=== PATIENT | female | born 1985 | race Caucasian/White ===

== ENCOUNTER 2024-06-05 20:23 | Emergency (ER) | payer BC, SELFPAY ==
--- NOTE | ~2024-06-05 | XR_ITS ---
XR chest 2V Ordering provider: Zain Luke MD History: 38 years Female with . 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 Comparison: None. FINDINGS: MEDIASTINUM: The cardiac silhouette is not enlarged. Right Port-A-Cath with the tip overlying superior vena cava. Postoperative changes in the mediastinum . LUNGS: No infiltrates, effusions or pneumothorax. OTHER: No free air under the diaphragm. IMPRESSION: No acute cardiopulmonary pathology. Reviewed, dictated and finalized at location A.
--- NOTE | 2024-06-05 20:27 | ECG_ITS ---
Test Date: 2024-06-05 20:54:19 Measurements Intervals [place] Rate: 93 P: 63 WV: 134 QRS: 71 QRSD: 83 T: 63 QT: 363 QTc: 453 Interpretive Statements SINUS RHYTHM NORMAL ECG No previous ECG available for comparison Electronically Signed On 06-05-2024 21:22:08 CDT by Camron Vidales D.O.
[2024-06-05 20:33] VITALS: BP 141/75; PULSE 95; RESP 18; TEMP 36.7; O2SAT 99
[2024-06-05 20:34] LABS: Glucose Point of Care 165 mg/dl (65-105)
[2024-06-05 21:30] LABS: Basophils Absolute Auto 0.03 K/mm3 (0.00-0.10); Basophils Percent Auto 0.6 % (0.0-1.0); Eosinophils Absolute Auto 0.05 K/mm3 (0.02-0.50); Eosinophils Percent Auto 1.1 % (1.0-6.0); Hematocrit 30.1 % (35.0-49.0); Hemoglobin 10.1 g/dL (12.0-15.0); Immature Granulocyte Absolute 0.02 K/mm3 (0.00-0.00); Immature Granulocyte Percent A 0.4 % (0.0-0.0); Lymphocytes Percent Auto 2.1 % (18.0-42.0); Mean Corpuscular HGB Conc 33.6 g/dL (32-36); Mean Corpuscular Hemoglobin 30.1 pg (27.0-31.0); Mean Corpuscular Volume 89.6 fL (78.0-102.0); Mean Platelet Volume 10.2 fl (9.2-11.8); Monocytes Absolute Auto 0.16 K/mm3 (0.10-0.90); Monocytes Percent Auto 3.4 % (2.0-11.0); Neutrophils Absolute Auto 4.37 K/mm3 (1.70-7.20); Neutrophils Percent Auto 92.4 % (50.0-70.0); Platelet Count Result 152 K/mm3 (150-420); Red Blood Count 3.36 M/mm3 (4.20-5.40); Red Cell Distribution Width 12.9 % (11.6-14.4); White Blood Count 4.7 K/mm3 (4.8-10.8)
--- NOTE | 2024-06-05 21:33 | ED.URI ---
HPI - URI/Sore Throat General Chief Complaint: Upper Respiratory Infection Stated Complaint: sore throat Time Seen by Provider: 06/05/24 20:26 Source: patient Mode of arrival: ambulatory Limitations: no limitations History of Present Illness HPI Narrative: Patient is a 38-year-old female with cystic fibrosis and having some allergic reaction after cleaning today at a house with dogs and other allergens. She feels like her throat is tight. Also her right lower extremity is causing pain 3 hours now. MD elicited complaint: sore throat Pertinent past history: other ( Cystic fibrosis) Onset (ago): day(s) (1) Consistency: constant Severity: mild Pain scale (0-10): 3 Able to tolerate fluids by mouth: Yes Exacerbating factors: other ( patient was cleaning a house today and noted the throat changes; also some skin changes) Relieving factors: nothing Associated symptoms: denies other symptoms Treatments prior to arrival: none Related Data Home Medications Medication Instructions Recorded Confirmed Unable to Obtain Home Medications 06/05/24 06/05/24 Allergies Allergy/AdvReac Type Severity Reaction Status Date / Time morphine Allergy Severe Other Verified 06/05/24 20:50 Review of Systems Review of Systems: All systems reviewed & are unremarkable except as noted in HPI and below Constitutional: Constitutional: Reports no additional constitutional complaints Eyes: Eyes: Reports no additional eye complaints ENT: Reports system reviewed and no additional complaints, except as documented Cardiovascular: Cardiovascular: Reports no additional cardiovascular complaints Respiratory: Respiratory: Reports no additional respiratory complaints Gastrointestinal: Gastrointestinal: Reports no additional gastrointestinal complaints Genitourinary: Genitourinary: Reports no additional female genitourinary complaints Musculoskeletal: Musculoskeletal: Reports no additional musculoskeletal complaints Integumentary/Breasts: Skin/Breast: Reports system reviewed and no additional complaints, except as docu Neurologic: Reports system reviewed and no additional complaints, except as documented Psychiatric: Psychiatric: Reports no additional psychiatric complaints Endocrine: Endocrine: Reports no additional endocrine complaints Hematologic/Lymphatic: Hematologic/Lymphatic: Reports no additional hematologic/lymphatic complaints Allergic/Immunologic: Allergic/Immunologic: Reports no additional allergic/immunologic complaints Exam Const: General: healthy appearing Nutritional Appearance: well nourished Orientation/consciousness: patient oriented x3 HENMT: Head: normal to inspection Ears: external ears normal Face/Nose/Sinus: Normal external nose present Eyes: Conjunctivae: conjunctivae normal Pupils: Equal, round and reactive pupils present EOM: EOMs intact bilaterally Neck: Neck: normal visual inspection Chest: Chest palpation & inspection: normal inspection of the chest Resp: Effort & Inspection: normal respiratory effort and not labored Auscultation: clear to auscultation bilaterally Cardio: Rate: regular rate Rhythm: regular rhythm Heart sounds: no murmurs GI: Inspection: non-distended GI Palp: Yes Soft to palpation and No Tenderness to palpation present (GI) Auscultation: normal bowel sounds : General: Yes bladder normal to palpation Back/Spine/Pelvis: Back: no CVA tenderness Skin: General skin exam: normal color Rashes: no rashes Wounds: no wounds Other: some slight bilateral hand irritation of the skin Neuro: General: patient oriented x3 Cranial nerves: Yes Nystagmus not present Speech: normal speech Extrem: General: normal to inspection Psych: Mental Status: mental status grossly normal Affect: normal affect Attitude: cooperative Course Vital Signs Vital signs: Vital Signs Oxygen Delivery Room Air 06/05/24 20:23 Temperature 36.7 C 06/05/24 20:33 Pulse Rate 95 07/
[2024-06-05 21:42] LABS: Alanine Aminotransferase 50 U/L (14-59); Alkaline Phosphatase 71 U/L (46-116); Anion Gap 9 mmol/L (4-12); Aspartate Amino Transferase 46 U/L (15-37); Bilirubin,Total 0.3 mg/dL (0.00-1.00); Blood Urea Nitrogen 19 mg/dL (7-18); Calcium 8.3 mg/dL (8.5-10.1); Carbon Dioxide 24 mmol/L (21-32); Chloride 107 mmol/L (98-108); Estimated CRCL calculation 31 ml/min; Estimated Glomerular Filt Rate 29; Glucose 121 mg/dL (70-99); Lactic Acid Reflex 1.5 mmol/L (0.4-2.0); Osmolality Calculated 293 mOsm/kg (285-295); Potassium 4.2 mmol/L (3.5-5.1); Sodium 140 mmol/L (136-145); Total Protein 5.9 g/dL (6.4-8.2)
[2024-06-05 21:43] LABS: Troponin I < 4.0 ng/L (0.00-60.4)
[2024-06-05 21:55] LABS: D Dimer 0.27 mg/L (0.19-0.50)
[2024-06-05 22:09] LABS: Influenza A QL RT-PCR Negative (Negative); Influenza B QL RT-PCR Negative (Negative); RSV RNA, RT-PCR Negative (Negative); SARS-CoV-2 RNA PCR Negative (Negative)
[2024-06-05] MEDS: methylPREDNISolone SOD SUCC 125 MG VIAL IM (22:09)
[2024-06-05 22:26] LABS: Appearance Urine Clear (Clear); Bilirubin Urine Negative (Negative); Blood Urine Trace-intact (Negative); Color Urine Yellow (Yellow); Glucose Urine UA 3+ (Negative); Ketones Urine Negative (Negative); Leukocyte Esterase Ur Negative LEU/UL (Negative); Nitrate Urine Negative (Negative); Protein Urine Negative (Negative); Specific Grav Ur >= 1.030 (1.010-1.020); Urobilinogen Urine 0.2 mg/dL (0.2-1.0)
[2024-06-05 22:32] LABS: Add Urine Microscopic? YES; Hyaline Casts Urine 20-29 /lpf; Pregnancy On Board Control Positive; RBC Urine 0-2 /hpf (0-2); Urine Pregnancy Test Negative
[2024-06-05] MEDS: HYDROmorphone HCL INJ (*CRX) 2 MG/ML VIAL 0.5 MG IV PUSH (23:58)
[2024-06-06] MEDS: SODIUM CHLORIDE 0.9% IV 1,000 ML 999 ML IV CONT (00:02)
[2024-06-06] MEDS: ONDANSETRON INJ 4 MG/2 ML VIAL IV PUSH (01:08)
[2024-06-06] MEDS: HEPARIN SODIUM LOCK FLUSH 500 UNITS/5 ML SYRINGE (01:31)
== END 2024-06-06 01:32 | disposition home or self-care (01) ==
PROVIDERS: Emergency Provider Emergency Medicine
DX: E86.0 Dehydration (principal); N17.9 Acute kidney failure, unspecified; E84.9 Cystic fibrosis, unspecified; Z20.822 Contact with and (suspected) exposure to COVID-19
CPT/HCPCS: 36415; 71046; 80053; 81001; 81025; 82948; 83605; 84484; 85025; 85380; 87637; 93005; 96361; 96372; 96374; 99284; J1170; J2405; J2919; J7030

== ENCOUNTER 2024-10-27 09:30 | Emergency (ER) | payer BC, SELFPAY ==
[2024-10-27] VITALS (29 sets, daily range): BP systolic 116–155; BP diastolic 67–95; PULSE 57–82; RESP 20–22; TEMP 36.7; O2SAT 95–100
--- NOTE | ~2024-10-27 | CT_ITS ---
CT of the Abdomen and Pelvis: Indication: Abdominal pain Technique: 2.5 mm axial scans were obtained through the abdomen and pelvis following intravenous adm inistration of 100 cc of Omnipaque 350. Dose reduction technique was used on this scan by utilizing a utomated exposure control and iterative reconstruction technique. The dose-length product (DLP) was 4 12.58 mGy-cm. Findings: Scans through the lung bases are unremarkable. There is diffuse hepatic steatosis. Cholecystectomy clips are present. There is marked atrophy/fatty replacement of the pancreas. The adrenals and kidneys are within normal limits. There is borderline s plenomegaly. No evidence of aortic aneurysm. No lymphadenopathy. No bowel obstruction or bowel wall thickening. Large amount of stool present throughout large bowel. There is also prominent stool distending the terminal ileum. Findings are compatible with constipatio n, possibly severe... Images through the pelvis were performed. Urinary bladder unremarkable. 4.2 cm right ovarian cyst pre sent. No ascites. Impression: Marked stool throughout the large bowel and distending the terminal ileum. Findings suggest severe co nstipation. 4.2 cm right ovarian cyst. Diffuse fatty infiltration of the liver. Borderline slightly. Reviewed, dictated and finalized at location . ARY HELPER Impression: Marked stool throughout the large bowel and distending the terminal ileum. Find ings suggest severe constipation. 4.2 cm right ovarian cyst. Diffuse fatty infiltration of the liver. Borderline slightly.
--- NOTE | ~2024-10-27 | XR_ITS ---
XR chest 1V portable 10/27/2024 10:09 Indication: RSV. Cough. Double lung transplant placement. Procedure: AP portable chest Comparison: 06/05/2024 Findings: Bilateral central venous catheter tips in the SVC. Heart size normal. There are changes of inferior sternotomy. There are infiltrates of the right midlung which may represent atelectasis or de veloping pneumonia. Impression: 1: Subtle new infiltrates of the right mid lung, atelectasis versus pneumonia. Reviewed, dictated and finalized at location B. TH INFORMATION MANAGEMENT DIRECTOR Impression: 1: Subtle new infiltrates of the right mid lung, atelectasis versus pneumonia.
--- NOTE | 2024-10-27 09:40 | ECG_ITS ---
Test Date: 2024-10-27 09:56:19 Measurements Intervals [place] Rate: 79 P: 75 MT: 98 QRS: 79 QRSD: 77 T: 73 QT: 369 QTc: 423 Interpretive Statements SINUS RHYTHM Compared to ECG 06/05/2024 20:54:19 NO SIGNIFICANT CHANGES Electronically Signed On 10-28-2024 11:48:06 PAYROLL PROCESSOR by Sharmin Garza M.D.
--- NOTE | 2024-10-27 09:49 | PC.NURSE ---
Covid test administered & given to Praveen to take to lab
[2024-10-27 09:53] LABS: Basophils Absolute Auto 0.01 K/mm3 (0.00-0.10); Basophils Percent Auto 0.1 % (0.0-1.0); Hematocrit 32.7 % (35.0-49.0); Hemoglobin 11.1 g/dL (12.0-15.0); Immature Granulocyte Absolute 0.08 K/mm3 (0.00-0.00); Immature Granulocyte Percent A 0.6 % (0.0-0.0); Lymphocytes Absolute Auto 0.24 K/mm3 (1.10-4.50); Lymphocytes Percent Auto 1.8 % (18.0-42.0); Mean Corpuscular HGB Conc 33.9 g/dL (32-36); Mean Corpuscular Hemoglobin 30.7 pg (27.0-31.0); Mean Corpuscular Volume 90.3 fL (78.0-102.0); Monocytes Absolute Auto 0.48 K/mm3 (0.10-0.90); Monocytes Percent Auto 3.6 % (2.0-11.0); Neutrophils Absolute Auto 12.36 K/mm3 (1.70-7.20); Neutrophils Percent Auto 93.9 % (50.0-70.0); Platelet Count Result 170 K/mm3 (150-420); Red Blood Count 3.62 M/mm3 (4.20-5.40); Red Cell Distribution Width 13.2 % (11.6-14.4); White Blood Count 13.2 K/mm3 (4.8-10.8)
[2024-10-27] MEDS: KETOROLAC 30 MG/ML VIAL (*BKC) IV PUSH (09:54)
[2024-10-27] MEDS: ONDANSETRON INJ 4 MG/2 ML VIAL IV PUSH ×2 (09:58→13:18)
[2024-10-27] MEDS: PANTOPRAZOLE SODIUM IV 40 MG VIAL IV PUSH (10:01)
[2024-10-27] MEDS: SODIUM CHLORIDE 0.9% IV 1,000 ML 999 ML IV CONT (10:02)
[2024-10-27 10:08] LABS: Partial Thromboplastin Time 24.5 Sec (23.9-30.70); Prothrombin Time 11.4 Seconds (9.50-12.1)
[2024-10-27 10:09] LABS: Alanine Aminotransferase 15 U/L (14-59); Albumin Level 2.8 g/dL (3.4-5.0); Alkaline Phosphatase 68 U/L (46-116); Anion Gap 10 mmol/L (4-12); Aspartate Amino Transferase 11 U/L (15-37); Bilirubin,Total 0.3 mg/dL (0.00-1.00); Blood Urea Nitrogen 19 mg/dL (7-18); Calcium 8.4 mg/dL (8.5-10.1); Carbon Dioxide 26 mmol/L (21-32); Chloride 103 mmol/L (98-108); Estimated CRCL calculation 45 ml/min; Estimated Glomerular Filt Rate 46; Glucose 155 mg/dL (70-99); Lipase 7 U/L (16-77); Osmolality Calculated 293 mOsm/kg (285-295); Potassium 4.4 mmol/L (3.5-5.1); Sodium 139 mmol/L (136-145); Total Protein 5.8 g/dL (6.4-8.2)
[2024-10-27 10:14] LABS: Lactic Acid Reflex 2.1 mmol/L (0.4-2.0)
[2024-10-27 10:35] LABS: SARS-CoV-2 RNA PCR Negative (Negative)
[2024-10-27 10:36] LABS: Influenza A QL RT-PCR Negative (Negative); Influenza B QL RT-PCR Negative (Negative); RSV RNA, RT-PCR Positive (Negative)
[2024-10-27 11:13] LABS: SPREG INTERNAL CONTROL Positive; Serum Qual hCG Negative
[2024-10-27 12:51] LABS: Reflex Lactic Acid Yes or No Add Lactic
--- NOTE | 2024-10-27 12:58 | ED_ITS ---
HPI - Nausea/Vomiting/Diarrhea General Chief complaint: Nausea/Vomiting/Diarrhea Stated complaint: nausea and vomiting Source: patient and family Mode of arrival: ambulatory History of Present Illness MD elicited complaint: nausea, vomiting and abdominal pain Onset (ago): hour(s) Description of vomiting: watery Related Data Home Medications ?Medication ?Instructions ?Recorded ?Confirmed ?Last Taken ?Type bupropion HCl 150 mg 24 hr tablet, 150 mg PO DAILY 06/06/24 06/06/24 06/05/24 History extended release dexmethylphenidate 35 mg 35 mg PO DAILY 06/06/24 06/06/24 06/06/24 History capsule,extended release [id number] mirtazapine 7.5 mg tablet 7.5 mg PO HS 06/06/24 06/06/24 06/05/24 History montelukast 10 mg tablet 10 mg PO HS 06/06/24 06/06/24 06/05/24 History pramipexole 0.5 mg tablet 0.5 mg PO HS 06/06/24 06/06/24 06/05/24 History tacrolimus 1 mg capsule, 1 mg PO BID 06/06/24 06/06/24 06/06/24 History immediate-release trazodone 50 mg tablet 50 mg PO HS 06/06/24 06/06/24 06/05/24 History azithromycin 250 mg tablet mg 10/27/24 Unknown History cetirizine 10 mg tablet mg 10/27/24 Unknown History dexmethylphenidate 25 mg mg PO 10/27/24 Unknown History capsule,extended release [id number] epinephrine 0.3 mg/0.3 mL 10/27/24 Unknown History injection, auto-injector mycophenolate sodium 360 mg mg PO 10/27/24 Unknown History tablet,delayed release pantoprazole 40 mg tablet,delayed mg PO 10/27/24 Unknown History release posaconazole 100 mg tablet,delayed mg PO 10/27/24 Unknown History release prednisone 5 mg tablet mg 10/27/24 Unknown History ribavirin 200 mg capsule mg 10/27/24 Unknown History sulfamethoxazole 800 tablet 10/27/24 Unknown History mg-trimethoprim 160 mg tablet tacrolimus 0.5 mg capsule, mg 10/27/24 Unknown History immediate-release valacyclovir 500 mg tablet mg 10/27/24 Unknown History Allergies Allergy/AdvReac Type Severity Reaction Status Date / Time morphine Allergy Severe Anaphylaxis Verified 10/27/24 10:26 Review of Systems 2 Review of Systems: All systems reviewed & are unremarkable except as noted in HPI and below PMFSH Past Medical History Medical History RSV (respiratory syncytial virus infection) Surgical History Surgical History History of lung transplant Exam 2 Const: General: healthy appearing and no acute distress Nutritional Appearance: well nourished Orientation/consciousness: patient oriented x3 Limitations: no limitations HENMT: Head: normal to inspection Neck: Neck: normal visual inspection Chest: Chest palpation & inspection: normal inspection of the chest Resp: Effort & Inspection: normal respiratory effort Auscultation: clear to auscultation bilaterally Cardio: Rate: regular rate Rhythm: regular rhythm GI: GI Palp: Yes Soft to palpation Auscultation: normal bowel sounds Skin: General skin exam: normal color Rashes: no rashes Neuro: General: patient oriented x3 Extrem: General: normal to inspection and no clubbing, cyanosis or edema Course Course Emergency Course: patient had blood work performed which shows no acute abnormalities, patient received IV fluids IV Zofran and IV pain control with Toradol, patient also received IV Protonix. Patient is resting comfortably had CT scan of the abdomen and pelvis performed which shows constipation otherwise no acute abnormalities intra-abdominal ER and her pelvic. Spoke with Dr. Flores her lung transplant doctor at [facility] which agreed with her care and advised close follow-up. Will discharge patient with some doubling her Protonix taking it twice daily and with p.o. Zofran and advised Tylenol extra-strength for pain. Vital Signs Vital signs: Vital Signs Temperature 36.7 C 10/27/24 09:35 Pulse Rate 82 10/27/24 09:35 Respiratory Rate 22 H 10/27/24 09:35 Blood Pressure 132/89 10/27/24 09:35 Pulse Oximetry 100 10/27/24 09:35 Oxygen Delivery Room Air 10/27/24 09:35 Temperature 36.7 C 10/27/24 09:35 Pulse Rate 75 10/27/24 11:01 Respiratory Rate 20 10/27/24 11:01 Blood Pressure 122/76 10/27/24 11:31 Pulse Oximetry 98 10/27/24 11:31 Oxygen Delivery Room Air 10/27/24 10:42 MDM - Nausea/Vomiting/Diarrhea Lab Data 10/27/24 09:50 10/27/24 09:50 Labs: Lab Results 10/27/24 10/27/24 Range/Units 09:50 11:04 WBC 13.2 H (4.8-10.8) K/mm3 RBC 3.62 L (4.20-5.40) M/mm3 Hgb 11.1 L (12.0-15.0) g/dL Hct 32.7 L (35.0-49.0) % MCV 90.3 (78.0-102.0) fL MCH 30.7 (27.0-31.0) pg MCHC 33.9 (32-36) g/dL RDW 13.2 (11.6-14.4) % Plt Count 170 (150-420) K/mm3 MPV 11.0 (9.2-11.8) fl Immature Gran % (Auto) 0.6 H (0.0-0.0) % Neut % (Auto) 93.9 H (50.0-70.0) % Lymph % (Auto) 1.8 L (18.0-42.0) % [place] % (Auto) 3.6 (2.0-11.0) % Eos % (Auto) 0.0 L (1.0-6.0) % Baso % (Auto) 0.1 (0.0-1.0) % Lymph # (Auto) 0.24 L (1.10-4.50) K/mm3 [place] # (Auto) 0.48 (0.10-0.90) K/mm3 Eos # (Auto) 0.00 L (0.02-0.50) K/mm3 Baso # (Auto) 0.01 (0.00-0.10) K/mm3 Abs Immat Gran (auto) 0.08 H (0.00-0.00) K/mm3 Absolute Neuts (auto) 12.36 H (1.70-7.20) K/mm3 Absolute Nucleated RBC 0.00 (0.00-0.00) K/mm3 Nucleated RBC % 0.0 (0-0.0) % PT 11.4 (9.50-12.1) Seconds INR 1.0 APTT 24.5 (23.9-30.70) Sec Sodium 139 (136-145) mmol/L Potassium 4.4 (3.5-5.1) mmol/L Chloride 103 (98-108) mmol/L Carbon Dioxide 26 (21-32) mmol/L Anion Gap 10 (4-12) mmol/L BUN 19 H (7-18) mg/dL Creatinine 1.31 H (0.55-1.02) mg/dL Estim Creat Clear Calc 45 ml/min Estimated GFR 46 L (59 - ) Glucose 155 H (70-99) mg/dL Calculated Osmolality 293 (285-295) mOsm/kg Lactic Acid 2.1 H (0.4-2.0) mmol/L Calcium 8.4 L (8.5-10.1) mg/dL Total Bilirubin 0.3 (0.00-1.00) mg/dL AST 11 L (15-37) U/L ALT 15 (14-59) U/L Alkaline Phosphatase 68 (46-116) U/L Total Protein 5.8 L (6.4-8.2) g/dL Albumin 2.8 L (3.4-5.0) g/dL Lipase 7 L (16-77) U/L Serum HCG, Qual Negative Influenza A (RT-PCR) Negative (Negative) Influenza B (RT-PCR) Negative (Negative) RSV (RT-PCR) Positive A (Negative) SARS-CoV-2 RNA (RT-PCR) Negative (Negative) Critical Care Time Critical Care Time Critical Care Time: No Discharge Plan Discharge Clinical Impression: Gastroenteritis Nausea & vomiting Qualifiers: Vomiting type: unspecified Qualified Code(s): R11.2 - Nausea with vomiting, unspecified Patient Disposition: Home, Self-Care Condition: Stable Instructions: Antibiotic Form, Gastroenteritis (ED), Acute Nausea and Vomiting (ED) Additional Instructions: advised to take pantoprazole twice daily, take medicine as prescribed and advised follow-up with primary within 1 week for further evaluation and treatment. Patient Language: Mongolian Prescriptions: New ondansetron 4 mg tablet,disintegrating 4 mg PO Q6H PRN (Reason: nausea and vomiting) Qty: 14 0RF No Action trazodone 50 mg tablet 50 mg PO HS pramipexole 0.5 mg tablet 0.5 mg PO HS montelukast 10 mg tablet 10 mg PO HS tacrolimus 1 mg capsule 1 mg PO BID bupropion HCl 150 mg tablet extended release 24 hr 150 mg PO DAILY mirtazapine 7.5 mg tablet 7.5 mg PO HS dexmethylphenidate 35 mg capsule,ER biphasic 50-50 35 mg PO DAILY ribavirin 200 mg capsule cetirizine 10 mg tablet azithromycin 250 mg tablet prednisone 5 mg tablet valacyclovir 500 mg tablet sulfamethoxazole-trimethoprim 800-160 mg tablet pantoprazole 40 mg tablet,delayed release (DR/EC) PO epinephrine 0.3 mg/0.3 mL auto-injector tacrolimus 0.5 mg capsule mycophenolate sodium 360 mg tablet,delayed release (DR/EC) PO dexmethylphenidate 25 mg capsule,ER biphasic 50-50 PO posaconazole 100 mg tablet,delayed release (DR/EC) PO Follow-up/Referrals: UNKNOWN,DOCTOR [Primary Care Provider] - Time of Disposition: 13:09
[2024-10-27] MEDS: KETOROLAC 15 MG/ML VIAL (*BKC) IV PUSH (13:18)
--- NOTE | 2024-10-27 13:44 | PC.NURSE ---
pt assisted to personal vehicle per rn and wheelchair.
--- NOTE | 2024-10-29 13:00 | PC.NURSE ---
PRELIMINARY BLOOD CULTURE; NO GROWTH TO DATE
== END 2024-10-27 13:32 | disposition home or self-care (01) ==
PROVIDERS: Emergency Provider Emergency Medicine
DX: K52.9 Noninfective gastroenteritis and colitis, unspecified (principal); Z79.899 Other long term (current) drug therapy; Z20.822 Contact with and (suspected) exposure to COVID-19
CPT/HCPCS: 36415; 71045; 74177; 80053; 83605; 83690; 84703; 85025; 85610; 85730; 87040; 87637; 93005; 96361; 96374; 96375; 96376; 99284; J1885; J2405; J2470; J7030; Q9967